=== PATIENT | female | born 1985 | race Caucasian/White ===

== ENCOUNTER → 2019-06-21 | Outpatient (CLI) | payer OTHER ==
--- NOTE | 2019-06-22 12:58 | CT ---
EXAMINATION TYPE: CT brain wo/w con DATE OF EXAM: 06/21/2019 COMPARISON: None HISTORY: Headaches x 3+ years. CT DLP: 2019.1 mGycm Automated Exposure Control for Dose Reduction was Utilized. TECHNIQUE: CT scan of the head is performed with IV contrast.,CT scan of the head is performed withou t and with without and with IV Contrast, patient injected with 100 mL of Isovue M300. CLINICAL HISTORY: Headaches COMPARISON: None. FINDINGS: Noncontrast images show no acute intracranial hemorrhage or midline shift. The ventricles and sulci are within normal limits in size. Postcontrast images show no suspicious enhancing intrapa renchymal mass. The globes are intact and the visualized sinuses are remarkable for probable mucus re tention cysts or polyps in the left maxillary sinus. IMPRESSION: Negative contrast enhanced head CT exam.
== END | disposition home or self-care (01) ==
LOC: RADCTMAIN 09:12
PROVIDERS: ATTEND Family Medicine
DX: R51 Headache (principal)
CPT/HCPCS: 70470; Q9967

== ENCOUNTER → 2023-08-25 | Outpatient (CLI) | payer OTHER | END | disposition home or self-care (01) | LOC: LABWHC1 11:07 | PROVIDERS: ATTEND Nurse Practitioner Family | DX: Z41.9 Encounter for procedure for purposes other than remedying health state, unspecified (principal); L70.0 Acne vulgaris | CPT/HCPCS: 36415; 84132 ==